=== PATIENT | male | born 1990 | race Caucasian/White ===

== ENCOUNTER 2017-08-13 10:46 | Inpatient (IN) | payer BC, OTHER ==
[~2017-08-13] VITALS: Ht 180.3 cm; Wt 79.4 kg
[2017-08-14] VITALS: BP 111/72
[2017-08-14] MEDS ORDERED: ACETAMINOPHEN 325 MG TABLET PO PRN (12:00)
[2017-08-14] MEDS ORDERED: MAGNESIUM HYDROXIDE 30 ML LIQUID UDC PO PRN (12:00)
[2017-08-14] MEDS ORDERED: diphenhydrAMINE 50 MG CAPSULE PO PRN (12:00)
[2017-08-14] MEDS ORDERED: ONDANSETRON 4 MG/2 ML VIAL IM PRN (12:00)
[2017-08-14] MEDS ORDERED: LORAZEPAM 1 MG TABLET PO PRN ×2 (12:00)
[2017-08-14] MEDS ORDERED: THIAMINE HCL 200 MG/2 ML VIAL IM ONE (12:00)
[2017-08-14] MEDS ORDERED: HYDROXYZINE PAMOATE 25 MG CAPSULE PO PRN (12:00)
[2017-08-14] MEDS ORDERED: ONDANSETRON ODT 4 MG TAB.RAPDIS SL PRN (12:00)
[2017-08-14] MEDS ORDERED: LORAZEPAM 2 MG/1 ML VIAL IM PRN (12:00)
[2017-08-14] MEDS ORDERED: DICYCLOMINE HCL 20 MG TABLET PO PRN (12:00)
[2017-08-14] MEDS ORDERED: MAG HYDROX/AL HYDROX/SIMETH 30 ML LIQUID UDC PO PRN (12:00)
[2017-08-14] MEDS ORDERED: MIRALAX 17 GM POWD.PACK PO PRN (12:00)
[2017-08-14] MEDS ORDERED: LOPERAMIDE HCL 2 MG CAPSULE PO PRN (12:00)
--- NOTE | 2017-08-14 12:09 | NUR ---
PRE ASSESSMENT: PT IN TAKE A/O X 4. HE IS FLUSHED WITH TREMORS NOTED TO BUE. HE REPORTS DRINKING VODKA 750 ML DAILY AND DRANK LAST AT 1 AM THIS AM. HE REPORTS DRINKING OVER 1000 ML YESTERDAY THROUGHOUT DAY AND NIGHT. HE DENIES ANY OTHER MOOD OR MIND ALTERING SUBSTANCES. HE REPORTS HE HAS BEEN DRINKING FOR 5 YEARS AND CANNOT STOP ON HIS OWN. SKIN IS WARM AND DRY AND INTACT
[2017-08-14 12:12] VITALS: BP 173/102
[2017-08-14] MEDS ORDERED: LORAZEPAM 1 MG TABLET PO ONE (12:15)
[2017-08-14] MEDS ORDERED: TRAZ150T75 PO (12:22)
[2017-08-14] MEDS ORDERED: SERT50TA PO (12:22)
[2017-08-14] MEDS ORDERED: METO-356 PO (12:22)
[2017-08-14] MEDS ORDERED: NALT50TA PO (12:22)
[2017-08-14 12:33] LABS: *AMPHETAMINE, URINE NEGATIVE (NEGATIVE); *BARBITURATE, URINE NEGATIVE (NEGATIVE); *CANNABINOID, URINE NEGATIVE (NEGATIVE); *COCCAINE, URINE NEGATIVE (NEGATIVE); *OPIATE, URINE NEGATIVE (NEGATIVE); *PHENCYCLIDINE SCREEN,URINE NEGATIVE (NEGATIVE)
[2017-08-14 13:14] LABS: BILIRUBIN,TOTAL 0.7 mg/dL (0.2-1.0); MAGNESIUM 1.7 mg/dL (1.8-2.4); POTASSIUM 3.8 mmol/L (3.5-5.1); TOTAL PROTEIN, SERUM 8.4 g/dL (6.4-8.2)
[2017-08-14 13:15] LABS: BASOPHILS % (AUTO) 0.3 % (0.0-2.0); HEMATOCRIT 49.5 % (36.7-47.1); HEMOGLOBIN 17.2 g/dL (12.5-16.3); LYMPHOCYTES # (AUTO) 0.8 K/uL (20.0-40.0); LYMPHOCYTES % (AUTO) 9.6 % (20.5-51.5); MEAN CORPUSCULAR HEMOGLOBIN 32.4 uug (23.8-33.4); MEAN CORPUSCULAR HGB CONC 35 g/dL (32.5-36.3); MEAN CORPUSCULAR VOLUME 93.3 fL (73.0-96.2); MONOCYTES # (AUTO) 0.5 K/uL (2.0-10.0); MONOCYTES % (AUTO) 6.5 % (0.0-11.0); NEUTROPHILS # (AUTO) 6.6 K/uL (1.8-8.9); NEUTROPHILS % (AUTO) 83.6 % (38.5-71.5); PLATELET COUNT (AUTO) 307 K/uL (152-348); RED BLOOD CELL COUNT(AUTO) 5.31 MIL/uL (4.06-5.63); WHITE BLOOD COUNT (AUTO) 7.9 K/uL (3.6-10.2)
[2017-08-14] MEDS: METOPROLOL SUCCINATE XL 25 MG TAB.SR.24H PO SCH ×2 (14:03→22:12)
--- NOTE | 2017-08-14 14:06 | NUR ---
ADMISSION: PT IS A 27 YO MALE ADMITTED FOR MEDICALLY SUPERVISED WITHDRAWAL OF ETOH (VODKA). HE REPORTS HE HAS BEEN DRINKING FOR 5 YEARS IN TOTAL AND IN THE PATTERN OF DRINKING 750 ML DAILY FOR THE LAST 5 MONTHS. HE LAST DRANK 1000 ML OF VODKA THROUGHOUT DAY YESTERDAY UNTIL 1AM THIS MORNING. HE DENIES ANY OTHER MOOD OR MIND ALTERING SUBSTANCE USE. HE DOES REPORT GOING TO DETOX IN [place] RIGHT BEFORE MOTHERS DAY BUT ONLY STAYED FOR 4 DAYS AND LEFT AMA. HE STATES THE ANXIETY IS A TRIGGER FOR HIM AND HE JUST DOESN'T KNOW HOW DEAL WITH IT EXCEPT TO DRINK ETOH . HE STATES HE CANNOT STOP AND NEEDS HELP. PT PRESENTS WITH GUARDED AFFECT AND SAD MOOD. HIS FACE IS FLUSHED AND HIS HANDS ARE TREMULOUS. CIWA 15. HE REPORTS SEVERE ANXIETY AND STATES HE FEELS LIKE HE IS CRAWLING OUT OF HIS SKIN.HE IS ODOROUS OF ETOH. HE IS DISHEVELED AND BECAME TEARFUL ON ASSESSMENT. HE LIVES ALONE. HE STATES HE GETS VERY DEPRESSED AND HAD SUICIDAL THOUGHTS YESTERDAY BUT NO PLAN. HE DENIES S/I AND H/1 AT THIS TIME. HE REPORTS A HISTORY OF HTN AND TAKES LOPRESSOR WHICH HE BROUGHT IN. HE ALSO REPORTS TAKING TRAZODONE FOR INSOMNIA AND ZOLOFT FOR DEPRESSION WHICH WAS ALSO BROUGHT FROM HOME. HE HAS A PCP NAMED DR. TRIPLETT AT [facility]. ORIENTED PT TO STAFF AND UNIT. REASSURED PT THAT NURSING STAFF IS AVAILABLE /. ENCOURAGED INCREASED FLUIDS. ATIVAN 2 MG PO GIVEN ORDERED. LOPRESSOR PO GIVEN ORDERED. THIAMINE IM GIVEN ORDERED. WILL CONTINUE TO PROVIDE SAFE AND SUPPORTIVE ENVIRONMENT.
[2017-08-14] MEDS: GABAPENTIN 300 MG CAPSULE PO SCH ×2 (15:19→20:22)
[2017-08-14] MEDS: LORAZEPAM 1 MG TABLET PO SCH ×3 (15:25→22:30)
[2017-08-14 16:00] VITALS: BP 123/87
--- NOTE | 2017-08-14 18:50 | NUR ---
PT WAS ADMITTED THIS AFTERNOON AND HAS BEEN RESTING IN HIS ROOM ON AND OFF. HIS LAST CIWA WAS 12. HE WAS GIVEN ONE TIME ATIVAN 2 MG PO AT 1215PM CIWA WAS 15 AT THAT TIME. IM THIAMINE GIVEN ORDERED. MD AND PSYCH MD ASSESSED PT. MEDS RECONCILED. VS WNL.WILL PASS SHIFT REPORT TO ONCOMING NIGHT NURSE.
--- NOTE | 2017-08-14 19:30 | NUR ---
START OF SHIFT Pt is a 27 y/o male admitted on 08/14/17 for ETOH withdrawal. Pt is on a 5 day Ativan taper that started today, tolerating well. Last CIWA 12 and no PRNs administered during day shift. Upon assessment pt presents with anxiety, restlessness, sweats, agitation, flat affect, depressed affect, unkempt room, tactile disturbances in bilateral feet, chills, difficulty falling and staying asleep, headache, dysphoria, anhedonia and is isolative. Medications due. Safety measures in place. Call light within reach. Will continue to monitor.
[2017-08-14 20:00] VITALS: BP 136/88
--- NOTE | 2017-08-14 20:00 | NUR ---
MG REPLACED Mg 1.7, notified, new order for Mag-Ox 400 mg. Safety measures in place. Call light within reach. Will continue to monitor.
[2017-08-14] MEDS ORDERED: MAGNESIUM OXIDE 400 MG TABLET PO ONE (20:15)
[2017-08-14] MEDS: IBUPROFEN 400 MG TABLET PO PRN (20:22)
--- NOTE | 2017-08-14 20:22 | NUR ---
PRN MOTRIN ADMINISTRATION Pt reports headache 07/27. Safety measures in place. Call light within reach. Will continue to monitor.
--- NOTE | 2017-08-14 21:22 | NUR ---
PRN MOTRIN REASSESSMENT Pt reports improvement in headache to tolerable level. Safety measures in place. Call light within reach. Will continue to monitor.
[2017-08-14] MEDS: TRAZODONE 50 MG TABLET PO SCH (22:13)
[2017-08-14] MEDS: CLONIDINE HCL 0.1 MG TABLET PO PRN (22:21)
--- NOTE | 2017-08-14 22:21 | NUR ---
PRN CLONIDINE ADMINISTRATION Pt presents with anxiety, agitation, chills, sweats. BP 136/88 HR 80. Safety measures in place. Call light within reach. Will continue to monitor.
--- NOTE | 2017-08-14 23:21 | NUR ---
PRN CLONIDINE REASSESSMENT Pt reports improvement in anxiety, agitation, chills and sweats. Safety measures in place. Call light within reach. Will continue to monitor.
[2017-08-15] VITALS: BP 111/72
--- NOTE | 2017-08-15 | NUR ---
CIWA DEFERRED Pt laying in bed with eyes closed, CIWA deferred, to be assessed when pt is awake per orders. Respirations even and unlabored. Safety measures in place. Call light within reach. Will continue to monitor.
[2017-08-15 04:00] VITALS: BP 119/77
--- NOTE | 2017-08-15 07:32 | NUR ---
Start of Shift Notes: Received patient in his room. Alert and oriented x 4. Denies S/I r H/I noted. No AV hallucinations noted. Patient is a 27 year old male admitted for ETOH withdrawal. He is on a 5-day Ativan taper as ordered. No adverse reactions noted. He appears disheveled. Room is messy. Encouraged maintenance of personal hygiene and space. Educated patient on his current plan of care for the day and his medication regimen. Encouraged oral fluid intake and encouraged group participation to learn new skills to prevent relapse. Will continue to monitor.
[2017-08-15 08:00] VITALS: BP 125/83
[2017-08-15] MEDS: FOLIC ACID 1 MG TABLET PO SCH (08:17)
[2017-08-15] MEDS: LORAZEPAM 1 MG TABLET PO SCH ×3 (08:17→21:50)
[2017-08-15] MEDS: MULTIVITAMINS,THERAPEUTIC TABLET PO SCH (08:17)
[2017-08-15] MEDS: SERTRALINE HCL 50 MG TABLET PO SCH (08:17)
[2017-08-15] MEDS: THIAMINE HCL 100 MG TABLET PO SCH (08:17)
[2017-08-15] MEDS: DOCUSATE SODIUM 250 MG CAPSULE PO SCH (08:18)
[2017-08-15] MEDS: GABAPENTIN 300 MG CAPSULE PO SCH ×3 (08:18→21:50)
[2017-08-15] MEDS ORDERED: TUBERCULIN,PURIF.PROT.DERIV. 5 TU/0.1 ML TEST ID ONE (09:00)
[2017-08-15] MEDS: IBUPROFEN 400 MG TABLET PO PRN ×2 (10:54→21:50)
--- NOTE | 2017-08-15 10:54 | NUR ---
Motrin 400 mg PO given: Patient noted with complain of 6/10 headache. Non-pharmacological interventions provided but ineffective. Medicated patient with Motrin 400 mg PO as ordered. Will monitor for effectiveness.
--- NOTE | 2017-08-15 11:54 | NUR ---
Re-assessment: Motrin Patient verbalizes that PRN Motrin was effective in relieving headache. He states "It worked, I don't have a headache anymore."
[2017-08-15 12:00] VITALS: BP 136/89
--- NOTE | 2017-08-15 14:15 | NUR ---
Client was prompted to attend group sessions.
[2017-08-15 16:00] VITALS: BP 135/90
--- NOTE | 2017-08-15 19:02 | NUR ---
End of Shift Notes: Patient continues to be on 5-day Ativan taper as ordered to manage symptoms related to ETOH withdrawal. VS monitored closely. No significant abnormalities noted. BP monitored closely, with Dx of HTN. No s/s of hypo/HTN noted. Withdrawal symptoms were closely monitored. Initial CIWA 14, patient presented with gross tremors, anxiety, agitation, restlessness, fatigue. Medicated patient with Motrin 400 mg PO at 1054 for headache with help after 1 hour. Last CIWA 11. Per patient, Ativan has been effective in reducing his withdrawal symptoms. Patient with flat affect, requires encouragement to verbalize his feelings and concerns. Encouraged to participate in group and socialize with his peers. All needs met and attended. Will continue to monitor closely.
--- NOTE | 2017-08-15 19:30 | NUR ---
START OF SHIFT Pt is a 27 y/o male admitted on 08/14/17 for ETOH withdrawal. Pt is on a 5 day Ativan taper that started on 08/14/17, tolerating well. Last CIWA 11 and PRN Motrin administered during day shift. Upon assessment pt presents with anxiety, restlessness, flat affect, depressed affect, unkempt room, tactile disturbances in feet, headache, agitation, flushed skin, sweats, chills, and difficulty falling and staying asleep. Pt verbalized feelings of wanting to leave AMA, states, If I cant get a hold of my friends I am going to leave. Relaxation techniques used. Medications due. Safety measures in place. Call light within reach. Will continue to monitor. Addendum: 08/15/17 at 222 by VERNELL MANNING RN Reva correction: Pt verbalized feelings of wanting to leave AMA and states, "If I cant get a hold of my friends I am going to leave." Addendum: 08/15/17 at 222 by VERNELL MANNING RN Correction: Demarcus
[2017-08-15 20:00] VITALS: BP 162/106
[2017-08-15] MEDS: METOPROLOL SUCCINATE XL 25 MG TAB.SR.24H PO SCH (21:50)
[2017-08-15] MEDS: TRAZODONE 50 MG TABLET PO SCH (21:50)
--- NOTE | 2017-08-15 21:50 | NUR ---
PRN MOTRIN ADMINISTRATION Pt reports headache 07/27. Safety measures in place. Call light within reach. Will continue to monitor.
--- NOTE | 2017-08-15 22:50 | NUR ---
PRN MOTRIN REASSESSMENT Pt laying in bed with eyes closed, medication noted effective. Safety measures in place. Call light within reach. Will continue to monitor.
[2017-08-16] VITALS: BP 154/92
[2017-08-16] MEDS: CLONIDINE HCL 0.1 MG TABLET PO PRN (00:28)
--- NOTE | 2017-08-16 00:28 | NUR ---
PRN CLONIDINE AND BENADRYL ADMINISTRATION Pt requests sleep aid. Pt presents with anxiety, agitation, intermittent chills, sweats. BP 154/92 HR 98. Safety measures in place. Call light within reach. Will continue to monitor.
--- NOTE | 2017-08-16 01:28 | NUR ---
PRN CLONIDINE AND BENADRYL REASSESSMENT Pt laying in bed with eyes closed, medications noted effective. Respirations even and unlabored. Safety measures in place. Call light within reach. Will continue to monitor.
[2017-08-16 03:10] LABS: HEPATITIS B SURFACE AG Negative (Negative)
--- NOTE | 2017-08-16 04:00 | NUR ---
CIWA DEFERRED AND VITALS REFUSED Pt laying in bed with eyes closed, CIWA deferred, to be assessed when pt is awake per orders. Vitals refused. Respirations even and unlabored. Safety measures in place. Call light within reach. Will continue to monitor.
--- NOTE | 2017-08-16 07:29 | NUR ---
END OF SHIFT Pt is a 27 y/o male admitted on 08/14/17 for ETOH withdrawal. Pt is on a 5 day Ativan taper that started on 08/14/17, tolerating well. Pt presented with anxiety, restlessness, flat affect, depressed affect, unkempt room, tactile disturbances in feet, headache, agitation, flushed skin, sweats, chills, increased BP and HR, and difficulty falling and staying asleep. Pt verbalized feelings of wanting to leave AMA, states, If I cant get a hold of my friends I am going to leave. Relaxation techniques used, pt stated he will stay the night, but verbalized still having thoughts of leaving AMA today. Scheduled medications and PRN Motrin, Clonidine and Benadryl administered, effective in S/S of withdrawal AEB CIWA 13 lowered to CIWA 11 during shift. Pt slept 6 hours. Intake 1461 ml, void x 1, stool x 1. Safety measures in place. Call light within reach. Pts needs have been met. Endorsed to day shift nurse.
--- NOTE | 2017-08-16 07:30 | NUR ---
Start of Shift Pt is a 27 y/o male admitted on 08/14/17 for the medically supervised withdrawal of ETOH. Pt is on a 5 day Ativan taper that started on 08/14/17, tolerating well. Pt. endorsed behaviorally anxious, restlessness, agitated, with a depressed affect. Received pt. in room laying down awake. Pt. presents with a flush face, restless with a depressed affect. Pt. verbalize concerns about wanting to speak with his friends, and assure them that hes okay. Room is unkempt with belongings scattered about the floor. PRN Motrin, Clonidine and Benadryl administered during PM shift. Pt slept 6 hours. Safety measures in place. Call light within reach. Pts needs have been met. Will continue to monitor pt.s behavior for safety.
[2017-08-16 07:36] LABS: BILIRUBIN,DIRECT 0.2 mg/dL (0.0-0.2); BILIRUBIN,TOTAL 0.9 mg/dL (0.2-1.0); CREATININE 1.1 mg/dL (0.6-1.3); MAGNESIUM 1.8 mg/dL (1.8-2.4); PHOSPHOROUS 4.8 mg/dL (2.5-4.9)
[2017-08-16 07:44] LABS: BASOPHILS % (AUTO) 0.4 % (0.0-2.0); EOSINOPHILS # (AUTO) 0.1 K/uL (0.0-0.7); EOSINOPHILS % (AUTO) 1.5 % (0.0-7.0); LYMPHOCYTES # (AUTO) 1.6 K/uL (20.0-40.0); LYMPHOCYTES % (AUTO) 30.5 % (20.5-51.5); MEAN CORPUSCULAR HEMOGLOBIN 32.3 uug (23.8-33.4); MEAN CORPUSCULAR HGB CONC 35 g/dL (32.5-36.3); MEAN CORPUSCULAR VOLUME 93.1 fL (73.0-96.2); MONOCYTES # (AUTO) 0.4 K/uL (2.0-10.0); MONOCYTES % (AUTO) 7.5 % (0.0-11.0); NEUTROPHILS # (AUTO) 3.1 K/uL (1.8-8.9); NEUTROPHILS % (AUTO) 60.1 % (38.5-71.5); RED BLOOD CELL COUNT(AUTO) 4.59 MIL/uL (4.06-5.63)
[2017-08-16 07:51] LABS: HEMATOCRIT 42.7 % (36.7-47.1); HEMOGLOBIN 14.8 g/dL (12.5-16.3); PLATELET COUNT (AUTO) 219 K/uL (152-348); WHITE BLOOD COUNT (AUTO) 5.1 K/uL (3.6-10.2)
[2017-08-16 08:00] VITALS: BP 132/80
[2017-08-16] MEDS: THIAMINE HCL 100 MG TABLET PO SCH (08:46)
[2017-08-16] MEDS: FOLIC ACID 1 MG TABLET PO SCH (08:46)
[2017-08-16] MEDS: DOCUSATE SODIUM 250 MG CAPSULE PO SCH (08:46)
[2017-08-16] MEDS: LORAZEPAM 1 MG TABLET PO SCH ×2 (08:46→13:35)
[2017-08-16] MEDS: MULTIVITAMINS,THERAPEUTIC TABLET PO SCH (08:46)
[2017-08-16] MEDS: GABAPENTIN 300 MG CAPSULE PO SCH ×2 (08:46→15:44)
[2017-08-16] MEDS: SERTRALINE HCL 50 MG TABLET PO SCH (08:46)
[2017-08-16 12:00] VITALS: BP 138/98
[2017-08-16] MEDS: IBUPROFEN 400 MG TABLET PO PRN (13:35)
[2017-08-16 17:19] VITALS: BP 155/102
--- NOTE | 2017-08-16 17:50 | NUR ---
AMA: Pt. states that he no longer feels the need to be here. Pt. states that he has been to Detox for alcohol withdrawal 3 other times and that every time hes only stayed 3 days. Pt. is alert and orientated x 4 with no acute signs of distress noted. Pt. still has fine hand tremors and flushed facial skin. Pt. verbalizes some anxiety but states he can white knuckle it. MD and Discharge planning both discuss treatment options and educated pt. about the risk of leaving AMA. Pt. still insist on leaving. This information writer encouraged pt. to stay and educated him about the risk regarding leaving AMA, pt. verbalized understanding and still requested to leave at this time. Pt. denies SI,HI,AH, and VH. All belongings returned, and pt. escorted to the lobby by staff.
[2017-08-17] MEDS ORDERED: LORAZEPAM 1 MG TABLET PO SCH (09:00)
[2017-08-18] MEDS ORDERED: LORAZEPAM 1 MG TABLET PO SCH (09:00)
== END 2017-08-16 17:50 | disposition left against medical advice (07) | DRG 894 ==
LOC: SRC 08-14 11:14
PROVIDERS: ADMIT Internal Medicine; ATTEND Internal Medicine
PROC: HZ2ZZZZ Detoxification Services for Substance Abuse Treatment (ICD-10-PCS; principal; 2017-08-14)
PROC: HZ41ZZZ Group Counseling for Substance Abuse Treatment, Behavioral (ICD-10-PCS; 2017-08-15)
DX: F10.230 Alcohol dependence with withdrawal, uncomplicated (principal); K70.10 Alcoholic hepatitis without ascites; F32.9 Major depressive disorder, single episode, unspecified; G47.00 Insomnia, unspecified; Y90.9 Presence of alcohol in blood, level not specified; Z81.1 Family history of alcohol abuse and dependence; Z79.899 Other long term (current) drug therapy; I10 Essential (primary) hypertension; F41.9 Anxiety disorder, unspecified
CPT/HCPCS: 36415; 70030-TC; 80307; 80346; 83690; 83735; 84100; 85025; 86592; 86705; 86803; 87340; 87806; G0480; J3411; Q0163